=== PATIENT | female | born 1965 | race Caucasian/White ===

== ENCOUNTER 2017-06-22 22:45 | Emergency (ER) | END 2017-06-23 03:15 | disposition home or self-care (01) ==

== ENCOUNTER 2017-06-30 10:56 | Emergency (ER) | END 2017-06-30 16:57 | disposition home or self-care (01) ==

== ENCOUNTER 2017-10-28 14:42 | Emergency (ER) | END 2017-10-28 17:47 | disposition home or self-care (01) ==

== ENCOUNTER 2018-07-05 00:14 | Emergency (ER) | payer OTHER ==
[~2018-07-05] VITALS: Ht 177.8 cm; Wt 103.6 kg
[~2018-07-05 00:14] MED LIST: ACET500C5 PO; AZIT250T PO; BUDE6HFA INHALATION; CETI10CA PO; IBUP800T48 PO; PRED20TA PO; PRED50TA PO
[2018-07-05 00:33] VITALS: BP 118/70; PULSE 81; RESP 19; Ht 177.8 cm; Wt 103.6 kg
--- NOTE | 2018-07-05 01:19 | ERD ---
ER Documentation Chief Complaint Chief Complaint C/O BOTTOCKS RASH X1 WEEK, STATES WAS GIVEN MEDS MONDAY, NOT WORKING HPI This is a 53-year-old female who presents emergency department for a rash for about a week. 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 Went to get an [id number] cream but has no relief. LMP: Stated that she is on menopausal. Denies headache, head injury, loss of consciousness, dizziness, neck pain, neck stiffness, throat pain, difficulty swallowing, difficulty breathing lying flat, shoulder pain, chest pain, back pain, abdominal pain, nausea, vomiting, constipation, diarrhea, urinary symptoms, or possibility being , loss of bowel and bladder control, trauma, injury, falls, difficulty walking due to pain, numbness or tingling sensation, calf pain, recent travel, recent major surgery in the last 3 weeks, calf pain, recent long travel, recent exposure to any illness, recent antibiotic use in the last 3 months, fever, chills, seizures. Past medical history: Denies. Surgical history: Denies. Social: Denies smoking, use of alcoholic beverages, use of illegal drugs. ROS All systems reviewed and are negative except as per history of present illness. Medications Home Meds Active Scripts Nystatin-Triamcinolone* (Nystatin-Triamcinolone* Cream) 15 Gm Cream.gm., 1 APPLIC TOP BID for 7 Days, TUB Prov:TRISH SUBRAMANIAN 07/05/18 Acetaminophen* (Tylophen*) 500 Mg Capsule, 1 CAP PO Q6H PRN for PAIN AND OR RICCO VATED TEMP, #30 CAP Prov:CHIARA GATES PA-C 10/28/17 Cetirizine Hcl* (Zyrtec*) 10 Mg Capsule, 10 MG PO DAILY for 15 Days, TAB Prov:BERNARDINO HUFFMAN MD 06/30/17 Budesonide-Formoterol Fumarate* (Symbicort*) 160-4.5 Hfa.aer.ad, 2 PUFF INHALATION BID for 15 Days, #1 EACH Prov:BERNARDINO HUFFMAN MD 06/30/17 Prednisone* (Prednisone*) 20 Mg Tab, 40 MG PO DAILY for 4 Days, TAB Prov:BERNARDINO HUFFMAN MD 06/30/17 Azithromycin* (Zithromax*) 250 Mg Tablet, 250 MG PO .ZPACK DIRECTED, #6 TAB TAKE 500 MG (2 TABS) THE FIRST DAY THEN 250 MG (1 TAB) DAYS 2-5 Prov:BERNARDINO HUFFMAN MD 06/30/17 Prednisone* (Prednisone*) 50 Mg Tablet, 50 MG PO DAILY, #4 TAB Prov:CATHIE FERNÁNDEZ PA-C 06/23/17 Ibuprofen* (Motrin*) 800 Mg Tab, 800 MG PO Q8, #30 TAB Prov:PERRY CHAUDHARI NP 10/22/15 Discontinued Scripts Nystatin (Nystatin Powder) 1 Each Powder.ea., 1 APPLIC TOPICAL BID for 5 Days, #1 BOTTLE Prov:TRISH SUBRAMANIAN 07/05/18 Allergies Allergies: Coded Allergies: amoxicillin (Verified Allergy, Unknown, 06/30/17) PMhx/Soc History of Surgery: Yes (D AND C 1997) Anesthesia Reaction: No Hx Neurological Disorder: No Hx Respiratory Disorders: No (PNEUMONIA) Hx Cardiac Disorders: No Hx Psychiatric Problems: No Hx Miscellaneous Medical Probl: No Hx Substance Use: No Hx Tobacco Use: No Physical Exam Vitals Vital Signs Date Temp Pulse Resp B/P (MAP) Pulse Ox O2 O2 Flow FiO2 Time Delivery Rate 07/05/18 98.0 81 19 118/70 97 00:33 (86) Physical Exam Const: No acute distress Head: Atraumatic Eyes: Normal Conjunctiva ENT: Normal External Ears, Nose and Mouth. Neck: Full range of motion. No meningismus. Resp: Clear to auscultation bilaterally Cardio: Regular rate and rhythm, no murmurs Abd: Soft, non tender, non distended. Normal bowel sounds. No abdominal tenderness. Skin: No petechiae or rashes. Examined with female toeing stockings, Elissa EMT. Intergluteal cleft: Noted redness and lesion that is circular with clear skin in the middle. No vesicular lesions. No bleeding. No discharge. No induration. No pressure sores. Back: No midline or flank tenderness. No difficulty walking. Ext: No cyanosis, or edema Neur: Awake and alert. Psych: Normal Mood and Affect Procedures/MDM Diagnostic tests: Clinical exam. Treatment: Not applicable. Re-evaluation: Not applicable. Differential diagnosis I have low suspicion for hemorrhoids, perirectal abscess, shingles. Final diagnosis: Rash. Prescription: Nystatin. Follow-up with PCP in the next 24-48 hours. PCP to refer patient to order manager in the next 24-48 hours. Come back here in the emergency department for any new symptoms or any worsening symptoms. All questions and concerns were answered. Patient and family members verbalized understanding and agreed with plan of care. Hemodynamically stable on discharge. Departure Diagnosis: Primary Impression: Rash Condition: Stable Additional Instructions: Follow-up with PCP in the next 24-48 hours. PCP to refer patient to order manager in the next 24-48 hours. Come back here in the emergency department for any new symptoms or any worsening symptoms. TRISH SUBRAMANIAN Jul 05, 2018 01:19
[2018-07-05] MEDS ORDERED: NYST1POW22 TOPICAL (01:22)
[2018-07-05] MEDS ORDERED: NYST15CR36 TOP (01:42)
== END 2018-07-05 01:46 | disposition home or self-care (01) ==
LOC: FTE 00:14
DX: R21 Rash and other nonspecific skin eruption (principal)
CPT/HCPCS: 99283